=== PATIENT | male | born 1990 | race Caucasian/White ===

== ENCOUNTER 2017-06-30 11:18 | Inpatient (IN) | payer SELFPAY ==
[~2017-06-30] VITALS: Ht 180.3 cm; Wt 63.6 kg
[~2017-06-30 11:18] MED LIST: ACET-749 PO; OXYC1TAB3 PO; [UNRECOGNIZED DRUG - CODE]
[2017-06-30] MEDS ORDERED: FENTANYL CITRATE INJ 50 MCG/1 ML 2 ML VIAL IV STA (11:35)
[2017-06-30] MEDS ORDERED: KETOROLAC TROMETHAMINE 30 MG/ML VIAL IV STA ×2 (11:35)
[2017-06-30] MEDS ORDERED: ONDANSETRON INJ 2 MG/ML 2 ML VIAL IV STA (11:35)
[2017-06-30] MEDS ORDERED: SODIUM CHLORIDE 0.9% 1000ML 1,000 ML IV STA (11:35)
[2017-06-30 12:16] LABS: BASO % 0.2 %; BASO ABS # 0.02 K/uL (0-0.2); EOS % 0.1 %; EOS ABS # 0.01 K/uL (0-0.5); HEMATOCRIT 38.8 % (42-52); HEMOGLOBIN 13.2 g/dL (14.0-18.0); IG# 0.02 K/uL (0.00-0.02); LYMPH % 16.2 %; MEAN CELL VOLUME 90.9 fL (80-100); MEAN CORPUSCULAR HEMOGLOBIN 30.9 pg (25-34); MEAN PLATELET VOLUME 10.6 fL (7.4-10.4); MONO % 7.6 %; MONO ABS # 0.61 K/uL (0.11-0.59); NEUT % 75.7 %; NEUT ABS # 6.07 K/uL (1.4-6.5); PLATELET COUNT 181 K/uL (130-400); RED CELL DISTRIBUTION WIDTH CV 13.7 % (11.5-14.5); RED CELL DISTRIBUTION WIDTH SD 45.3 fL (36.4-46.3); WHITE BLOOD COUNT 8.03 K/uL (4.8-10.8)
--- NOTE | 2017-06-30 12:27 | DIAGNOSTIC IMAGING REPORT ---
CT OF THE ABDOMEN AND PELVIS WITHOUT CONTRAST, STONE PROTOCOL CLINICAL HISTORY: Right flank pain. COMPARISON STUDY: CT of the abdomen and pelvis June 13, 2010 TECHNIQUE: Helical axial images of the abdomen and pelvis were obtained without IV or oral contrast according to renal stone protocol. A dose lowering technique was utilized adhering to the principles of ALARA. FINDINGS: A 5 mm x 4 mm proximal right ureteral calculus results in moderate right hydronephrosis. There is perinephric infiltration. Multiple bilateral renal calculi are noted which measure up to 4 mm. There are no additional ureteral. Evaluation of the abdomen and pelvis is suboptimal given the lack of IV contrast. Unenhanced images of the liver, spleen, adrenal glands and pancreas are normal. There is no evidence for a bowel obstruction. No lymphadenopathy is present. No suspicious osseous lesion is present. The appendix is normal. IMPRESSION: 1. 5 mm x 4 mm proximal right ureteral calculus which results in moderate right hydronephrosis. 2. Bilateral nephrolithiasis. Electronically signed by: John Richey M.D. 06/30/2017 12:26 PM Dictated Date/Time: 06/30/2017 12:21 PM
[2017-06-30 12:28] LABS: ALBUMIN 3.6 gm/dl (3.4-5.0); CALCIUM 7.7 mg/dl (8.5-10.1); CREATININE 1.04 mg/dl (0.60-1.40); POTASSIUM 3.9 mmol/L (3.5-5.1)
[2017-06-30 12:31] LABS: TOTAL PROTEIN 6.5 gm/dl (6.4-8.2)
[2017-06-30] MEDS: MoRPHine SULFATE 4 MG/ML 1 ML CARP\\VIAL IV PRN ×3 (12:37→15:42)
[2017-06-30] MEDS ORDERED: HYDROmorphone INJ 2 MG/ML SYR/VIAL IV STA (13:32)
--- NOTE | 2017-06-30 13:46 | EMERGENCY ROOM VISIT NOTE ---
History Report prepared by Kenny: Gemini Roberts Under the Supervision of: Dr. Salomón Dubois D.O. First contact with patient: 11:31 Chief Complaint: FLANK PAIN Stated Complaint: FLANK PAIN History of Present Illness The patient is a 27 year old male who presents to the Emergency Room with complaints of persistent right sided flank pain that began earlier today. He reports that yesterday he was experiencing sharp abdominal pain and diarrhea. Today when he woke up, he was experiencing severe right sided flank pain. He denies any urinary symptoms, but does not he has not been urinating much. Source of History: patient Onset: today Position: other (right flank) Quality: other (right flank pain) Timing: other (persistent) Associated Symptoms: + abdominal pain (sharp), + diarrhea, No urinary symptoms Review of Systems See HPI for pertinent positives & negatives. A total of 10 systems reviewed and were otherwise negative. Past Medical & Surgical Medical Problems: (1) Urinary problem in male Patient denies any history of medical problems. Family History Cancer Diabetes mellitus Gallbladder disease Kidney disease Social History Smoking Status: Former Smoker Smokeless Tobacco Use: Unknown Alcohol Use: none Drug Use: none Marital Status: single Housing Status: lives with family Current/Historical Medications No Active Prescriptions or Reported Meds Allergies Coded Allergies: No Known Allergies (Unverified , 06/13/10) Physical Exam Vital Signs Date Time Temp Pulse Resp B/P (MAP) Pulse Ox O2 Delivery O2 Flow Rate FiO2 06/30/17 13:07 58 20 130/72 100 Nasal Cannula 3.0 06/30/17 12:55 47 16 142/75 100 Nasal Cannula 3.0 06/30/17 12:29 42 15 125/70 100 Room Air 06/30/17 11:21 36.7 54 20 125/95 95 Room Air Physical Exam CONSTITUTIONAL/VITAL SIGNS: Reviewed / noted above. GENERAL: Non-toxic in appearance. INTEGUMENTARY: Warm, dry, and [place]. HEAD: Normocephalic. EYES: without scleral icterus or trauma. ENT/OROPHARYNX: clear and moist. LYMPHADENOPATHY/NECK: Is supple without lymphadenopathy or meningismus. RESPIRATORY: Lungs clear and equal. CARDIOVASCULAR: Regular rate and rhythm. GI/ABDOMEN: Soft and nontender. No organomegaly or pulsatile mass. No rebound or guarding. Normal bowel sounds. EXTREMITIES: Warm and well perfused. BACK: Right CVA tenderness. NEUROLOGICAL: Intact without focal deficits. PSYCHIATRIC: normal affect. MUSCULOSKELETAL: Normally developed with good muscle tone. Medical Decision & Procedures ER Provider Diagnostic Interpretation: Radiology results as stated below per my review and radiologist interpretation: CT OF THE ABDOMEN AND PELVIS WITHOUT CONTRAST, STONE PROTOCOL CLINICAL HISTORY: Right flank pain. COMPARISON STUDY: CT of the abdomen and pelvis June 13, 2010 TECHNIQUE: Helical axial images of the abdomen and pelvis were obtained without IV or oral contrast according to renal stone protocol. A dose lowering technique was utilized adhering to the principles of ALARA. FINDINGS: A 5 mm x 4 mm proximal right ureteral calculus results in moderate right hydronephrosis. There is perinephric infiltration. Multiple bilateral renal calculi are noted which measure up to 4 mm. There are no additional ureteral. Evaluation of the abdomen and pelvis is suboptimal given the lack of IV contrast. Unenhanced images of the liver, spleen, adrenal glands and pancreas are normal. There is no evidence for a bowel obstruction. No lymphadenopathy is present. No suspicious osseous lesion is present. The appendix is normal. IMPRESSION: 1. 5 mm x 4 mm proximal right ureteral calculus which results in moderate right hydronephrosis. 2. Bilateral nephrolithiasis. Electronically signed by: John Richey M.D. 06/30/2017 12:26 PM Dictated Date/Time: 06/30/2017 12:21 PM Laboratory Results 06/30/17 12:00 Red Blood Count 4.27, Mean Corpuscular Volume 90.9, Mean Corpuscular Hemoglobin 30.9, Mean Corpuscular Hemoglobin Concent 34.0, Mean Platelet Volume 10.6, Neutrophils (%) (Auto) 75.7, Lymphocytes (%) (Auto) 16.2, Monocytes (%) (Auto) 7.6, Eosinophils (%) (Auto) 0.1, Basophils (%) (Auto) 0.2, Neutrophils # (Auto) 6.07, Lymphocytes # (Auto) 1.30, Monocytes # (Auto) 0.61, Eosinophils # (Auto) 0.01, Basophils # (Auto) 0.02 06/30/17 12:00 Test 06/30/17 11:30 06/30/17 12:00 Urine Color ORANGE Urine Appearance TURBID (CLEAR) Urine pH 5.5 (4.5-7.5) Urine Specific [place] 1.024 (1.000-1.030) Urine Protein 1+ (NEG) Urine Glucose (UA) NEG (NEG) Urine Ketones NEG (NEG) Urine Occult Blood 3+ (NEG) Urine Nitrite NEG (NEG) Urine Bilirubin NEG (NEG) Urine Urobilinogen NEG (NEG) Urine Leukocyte Esterase SMALL (NEG) Urine WBC (Auto) 5-10 /hpf (0-5) Urine RBC (Auto) >30 /hpf (0-4) Urine Hyaline Casts (Auto) 1-5 /lpf (0-5) Urine Epithelial Cells (Auto) >30 /lpf (0-5) Urine Bacteria (Auto) NEG (NEG) Urine Renal Epithelial Cells /lpf (0-5) Urine Pathogenic Casts /lpf (0) Urine Mucus PRESENT (NONE PRSENT) White Blood Count 8.03 K/uL (4.8-10.8) Red Blood Count 4.27 M/uL (4.7-6.1) Hemoglobin 13.2 g/dL (14.0-18.0) Hematocrit 38.8 % (42-52) Mean Corpuscular Volume 90.9 fL (80-100) Mean Corpuscular Hemoglobin 30.9 pg (25-34) Mean Corpuscular Hemoglobin Concent 34.0 g/dl (32-36) Platelet Count 181 K/uL (130-400) Mean Platelet Volume 10.6 fL (7.4-10.4) Neutrophils (%) (Auto) 75.7 % Lymphocytes (%) (Auto) 16.2 % Monocytes (%) (Auto) 7.6 % Eosinophils (%) (Auto) 0.1 % Basophils (%) (Auto) 0.2 % Neutrophils # (Auto) 6.07 K/uL (1.4-6.5) Lymphocytes # (Auto) 1.30 K/uL (1.2-3.4) Monocytes # (Auto) 0.61 K/uL (0.11-0.59) Eosinophils # (Auto) 0.01 K/uL (0-0.5) Basophils # (Auto) 0.02 K/uL (0-0.2) RDW Standard Deviation 45.3 fL (36.4-46.3) RDW Coefficient of Variation 13.7 % (11.5-14.5) Immature Granulocyte % (Auto) 0.2 % Immature Granulocyte # (Auto) 0.02 K/uL (0.00-0.02) Anion Gap 5.0 mmol/L (3-11) Est Creatinine Clear Calc Drug Dose 96.0 ml/min Estimated GFR () 113.5 Estimated GFR (Non- 97.9 BUN/Creatinine Ratio 12.6 (10-20) Calcium Level 7.7 mg/dl (8.5-10.1) Total Bilirubin 0.8 mg/dl (0.2-1) Direct Bilirubin 0.1 mg/dl (0-0.2) Aspartate Amino Transf (AST/SGOT) 24 U/L (15-37) Alanine Aminotransferase (ALT/SGPT) 35 U/L (12-78) Alkaline Phosphatase 62 U/L (45-117) Total Protein 6.5 gm/dl (6.4-8.2) Albumin 3.6 gm/dl (3.4-5.0) Lipase 92 U/L (73-393) Laboratory results as stated above per my review. Medications Administered Medications (Trade) Dose Ordered Sig/Toni Route Start Time Stop Time Status Last Admin Dose Admin Sodium Chloride 1,000 ml @ 999 mls/hr Q1H1M STAT IV 06/30/17 11:35 06/30/17 12:35 DC 06/30/17 11:47 999 MLS/HR Fentanyl Citrate (Fentanyl Inj) 100 mcg NOW STAT IV 06/30/17 11:35 06/30/17 11:36 DC 06/30/17 11:45 100 MCG Ondansetron HCl (Zofran Inj) 4 mg NOW STAT IV 06/30/17 11:35 06/30/17 11:37 DC 06/30/17 11:45 4 MG Ketorolac Tromethamine (Toradol Inj) 30 mg NOW STAT IV 06/30/17 11:35 06/30/17 11:37 DC 06/30/17 11:49 30 MG Morphine Sulfate (MoRPHine SULFATE INJ) 4 mg Q15M PRN IV 06/30/17 11:45 07/14/17 11:44 06/30/17 13:06 4 MG Hydromorphone HCl (Dilaudid Inj) 2 mg NOW STAT IV 06/30/17 13:32 06/30/17 13:33 DC 4/27/18 13:39 2 MG ED Course 1134: Previous medical records were reviewed. The patient was evaluated in room B7. A complete history and physical examination was performed. 1135: Ordered Toradol Inj 30mg IV, Zofran Inj 4mg IV, Fentanyl Inj 100mcg IV, and Sodium Chloride 1000 ml @ 999 mls/hr IV. 1145: Ordered Morphine Sulfate 4mg IV. 1314: I reevaluated the patient, who was resting. Updated him on test findings. He verbalized complete understanding. 1332: Ordered Dilaudid Inj 2mg IV. 1335: Discussed the patient's case with Bety Gregg [facility], who suggests we control his pain here to avoid admitting him since he does not have health insurance. 1421: Discussed the patient's case with Hayley Contreras PA-C. The patient will be evaluated for further treatment and disposition. 1435: I reevaluated the patient discussed the treatment plan. He verbalized complete agreement. Medical Decision Differential considered: pancreatitis, hepatitis, or acute cholecystitis, AAA, UTI, pyelonephritis, kidney stones, appendicitis, diverticulitis, shingles, bowel obstruction mesenteric ischemia, intussusception,hernia, testicular torsion. This is a 27-year-old male who presents to the ED with a chief complaint of right flank pain. The patient states that his symptoms started yesterday evening. He also had some associated vomiting and diarrhea. The patient states that he awoke this morning with right flank pain. He has been in writhing pain most the day today. He is brought in by EMS. EMS provided IV fentanyl for pain. This did not seem to help much. He was given IV morphine as well as IV fluids and IV Toradol here. This also did not help his pain and he was given IV Dilaudid. The patient's exam reveals some right CVA tenderness. A CT scan reveals a 5 x 4 mm proximal right ureteral calculus with moderate right sided hydronephrosis. Urine revealed 3+ blood but no infection. CBC was normal and PRP was unremarkable. The patient was told the results of the test. Despite receiving moderate amount of medication for pain here, the patient continued having significant pain. I spoke with Bety Gregg from urology and they recommended admitting the patient for pain control. I spoke with the unassigned [facility] for unassigned. They will see the patient for further inpatient evaluation and management of pain. Medication Reconcilliation Current Medication List: was personally reviewed by me Blood Pressure Screening Patient's blood pressure: Normal blood pressure Blood pressure disposition: Did not require urgent referral Consults Time Called: 1335 Consulting Physician: HASMUKH [facility]ana [facility] Returned Call: 1335 Discussed the patient's case with HASMUKH Magana urology [facility], who suggests we control his pain here to avoid admitting him since he does not have health insurance. Additional Consults: Time Called: 1421 Consulted Physician: Hayley Contreras PA-C Returned Call: 1421 Additional Comments: Discussed the patient's case with Hayley Contreras PA-C. The patient will be evaluated for further treatment and disposition. Impression Primary Impression: Renal colic Additional Impression: Ureteral calculus, right Scribe Attestation The scribe's documentation has been prepared under my direction and personally reviewed by me in its entirety. I confirm that the note above accurately reflects all work, treatment, procedures, and medical decision making performed by me. Departure Information Dispostion Being Evaluated By Hospitalist Prescriptions No Active Prescriptions or Reported Meds Referrals No Doctor, Assigned (PCP) Forms HOME CARE DOCUMENTATION FORM, IMPORTANT VISIT INFORMATION Patient Instructions My [facility] Problem Qualifiers
[2017-06-30] MEDS ORDERED: POLYETHYLENE (MIRALAX) 17 GM PACK PO PRN (15:00)
[2017-06-30] MEDS ORDERED: ACETAMINOPHEN 325 MG TAB PO PRN (15:00)
[2017-06-30] MEDS ORDERED: TAMSULOSIN HCL 0.4 MG CAP PO ONE (15:15)
[2017-06-30 15:26] VITALS: Ht 180.3 cm; Wt 63.6 kg
[2017-06-30] MEDS ORDERED: SODIUM CHLORIDE 0.9% 1000ML 1,000 ML IV SCH (15:30)
[2017-06-30] MEDS: ONDANSETRON INJ 2 MG/ML 2 ML VIAL IV PRN ×2 (15:45→22:23)
--- NOTE | 2017-06-30 15:51 | History and Physical ---
History & Physical Date & Time of Service: Jun 30, 2017 at 15:15 Chief Complaint: Flank Pain Primary Care Physician: No Doctor, Assigned History of Present Illness Source: patient, family, clinic records, hospital records Pt is 27 y/o M with no chronic medical problems presented to ER with c/o R flank pain. Patient states this morning started with right back pain radiating to right flank with associated nausea vomiting 1. Pain described as sharp and is rated a 9 out of 10 on pain scale. States yesterday couple episodes of vomiting and couple episodes of diarrhea. Took Kaopectate with moderate relief. No diarrhea today. Patient states feels is urinated less today. Denies any hematuria, dysuria. Denies history of kidney stones in the past. Denies fever/chills, diaphoresis, hematemesis, hematochezia, melena, scrotal edema/erythema/pain/discoloration, AMEZCUA, dizziness, syncope, vision changes, neck pain, CP, SOB, orthopnea, palpitations, cough, sore throat, choking, otalgia, rhinorrhea, paresthesias, weakness, extremity edema, rashes, weight loss. Past Medical/Surgical History Medical Problems: (1) Urinary problem in male Status: Resolved Surgical Problems: (1) Hx of colonoscopy Permanent Comment: Internal hemorrhoids Status: Resolved (2) Hx of removal of testicle Permanent Comment: Left - age [age] Status: Resolved (3) Hx of undescended testicle Permanent Comment: left side. Surgical removal age 1 Status: Chronic Family History Cancer Diabetes mellitus Gallbladder disease Kidney disease Social History Smoking Status: Former Smoker Smokeless Tobacco Use: Yes (0.5-1 can a day) Alcohol Use: occasionally Drug Use: none Marital Status: single Allergies Coded Allergies: No Known Allergies (Unverified , 06/13/10) Home Medications No Active Prescriptions or Reported Meds Review of Systems Constitutional: No fever, No chills, No sweats, No weight loss, No weakness, No fatigue Eyes: No eye pain, No redness ENT: No hearing loss, No unusual epistaxis, No nasal symptoms Respiratory: No cough, No sputum, No wheezing, No shortness of breath Cardiovascular: No chest pain, No edema, No palpitations Abdomen: + problem reported (see HPI) Musculoskeletal: No joint pain, No muscle pain Genitourinary - Male: No hematuria, No dysuria, No urinary frequency, No urinary urgency, No urinary retention, No penile discharge Hematologic / Lymphatic: No abnormal bleeding/bruising, No clotting problems Integumentary: No rash, No itch Physical Exam Vital Signs Date Time Temp Pulse Resp B/P (MAP) Pulse Ox O2 Delivery O2 Flow Rate FiO2 06/30/17 15:08 61 18 138/59 99 Nasal Cannula 3.0 06/30/17 13:07 58 20 130/72 100 Nasal Cannula 3.0 06/30/17 12:55 47 16 142/75 100 Nasal Cannula 3.0 06/30/17 12:29 42 15 125/70 100 Room Air 06/30/17 11:21 36.7 54 20 125/95 95 Room Air General Appearance: no apparent distress (at this time resting supine in bed), + thin Head: normocephalic, atraumatic Eyes: normal inspection, sclerae normal ENT: hearing grossly normal, pharynx normal, + pertinent finding (mucous membranes moist) Neck: supple, trachea midline Respiratory/Chest: lungs clear, normal breath sounds, no respiratory distress Cardiovascular: regular rate, rhythm, no murmur, normal peripheral pulses Abdomen/GI: normal bowel sounds, soft, + pertinent finding (+right CVA and flank tenderness to palpation, no other abdominal tenderness to palpation. no rebound or guarding) Back: normal inspection, normal range of motion (ROM with pain reproduced to right flank) Extremities/Musculoskelatal: normal inspection, normal capillary refill, no pedal edema, non-tender Neurologic/Psych: alert, normal mood/affect, oriented x 3 Skin: normal color, warm/dry Diagnostics Laboratory Results Results Past 24 Hours Test 06/30/17 11:30 06/30/17 12:00 Range/Units Urine Color ORANGE Urine Appearance TURBID CLEAR Urine pH 5.5 4.5-7.5 Urine Specific [place] 1.024 1.000-1.030 Urine Protein 1+ NEG Urine Glucose (UA) NEG NEG Urine Ketones NEG NEG Urine Occult Blood 3+ NEG Urine Nitrite NEG NEG Urine Bilirubin NEG NEG Urine Urobilinogen NEG NEG Urine Leukocyte Esterase SMALL NEG Urine WBC (Auto) 5-10 0-5 /hpf Urine RBC (Auto) >30 0-4 /hpf Urine Hyaline Casts (Auto) 1-5 0-5 /lpf Urine Epithelial Cells (Auto) >30 0-5 /lpf Urine Bacteria (Auto) NEG NEG Urine Renal Epithelial Cells 0-5 /lpf Urine Pathogenic Casts 0 /lpf Urine Mucus PRESENT NONE PRSENT White Blood Count 8.03 4.8-10.8 K/uL Red Blood Count 4.27 4.7-6.1 M/uL Hemoglobin 13.2 14.0-18.0 g/dL Hematocrit 38.8 42-52 % Mean Corpuscular Volume 90.9 80-100 fL Mean Corpuscular Hemoglobin 30.9 25-34 pg Mean Corpuscular Hemoglobin Concent 34.0 32-36 g/dl Platelet Count 181 130-400 K/uL Mean Platelet Volume 10.6 7.4-10.4 fL Neutrophils (%) (Auto) 75.7 % Lymphocytes (%) (Auto) 16.2 % Monocytes (%) (Auto) 7.6 % Eosinophils (%) (Auto) 0.1 % Basophils (%) (Auto) 0.2 % Neutrophils # (Auto) 6.07 1.4-6.5 K/uL Lymphocytes # (Auto) 1.30 1.2-3.4 K/uL Monocytes # (Auto) 0.61 0.11-0.59 K/uL Eosinophils # (Auto) 0.01 0-0.5 K/uL Basophils # (Auto) 0.02 0-0.2 K/uL RDW Standard Deviation 45.3 36.4-46.3 fL RDW Coefficient of Variation 13.7 11.5-14.5 % Immature Granulocyte % (Auto) 0.2 % Immature Granulocyte # (Auto) 0.02 0.00-0.02 K/uL Sodium Level 142 136-145 mmol/L Potassium Level 3.9 3.5-5.1 mmol/L Chloride Level 112 98-107 mmol/L Carbon Dioxide Level 25 21-32 mmol/L Anion Gap 5.0 3-11 mmol/L Blood Urea Nitrogen 13 7-18 mg/dl Creatinine 1.04 0.60-1.40 mg/dl Est Creatinine Clear Calc Drug Dose 96.0 ml/min Estimated GFR () 113.5 Estimated GFR (Non- 97.9 BUN/Creatinine Ratio 12.6 10-20 Random Glucose 101 70-99 mg/dl Calcium Level 7.7 8.5-10.1 mg/dl Total Bilirubin 0.8 0.2-1 mg/dl Direct Bilirubin 0.1 0-0.2 mg/dl Aspartate Amino Transf (AST/SGOT) 24 15-37 U/L Alanine Aminotransferase (ALT/SGPT) 35 12-78 U/L Alkaline Phosphatase 62 45-117 U/L Total Protein 6.5 6.4-8.2 gm/dl Albumin 3.6 3.4-5.0 gm/dl Lipase 92 73-393 U/L Diagnostic Radiology CT abd/pelvis: IMPRESSION: 1. 5 mm x 4 mm proximal right ureteral calculus which results in moderate right hydronephrosis. 2. Bilateral nephrolithiasis. Impression Assessment and Plan RENAL COLIC/STONE/MODERATE RIGHT HYDRONEPHROSIS Patient received fentanyl in route by EMS, and ER received Toradol 30 mg IV, fentanyl 100 mcg IV, morphine, Dilaudid 2 mg IV, 1 L NSS, Zofran 4 mg. Patient with recurrent pain and admitted for pain control. CT abd/pelvis: 5 mm x 4 mm proximal right ureteral calculus with moderate right hydronephrosis. U/A:3+blood , >30 RBC, 5-10 WBC, >30 epi. No leukocytosis, afebrile. -admit for pain control -IVF -Toradol prn pain -Dilaudid prn severe pain -Flomax daily -Urology consult -cbc, prp in am DVT Prophylaxis -Ambulation, pt young without medical hx. Will hold on medical VTE Disposition admit medsur Full code Pt does not have PCP Pt was seen with Dr Walter. See addendum Attending Addendum Pt was seen and examined. Agreed with Leslie ABRAHAM exam, assessment and plan. 27 y/o M with no significant PMH presented to ER with c/o R flank pain. Pt described the pain as sharp, severe, about 10/10 associated with nausea and vomiting. CT abdomen/pelvis done in the ER showed 5 mm x 4 mm proximal right ureteral calculus which results in moderate right hydronephrosis. Pt said that the pain med does not last too long. Pt is barely able to keep his eyes open. In the ER his oxygen saturation dropped and was placed on NC. Denies any chest pain, palpitation and SOB. General- drowsy and lethargy Head- atraumatic Eyes- PERRL, EOMI ENT- oropharynx clear Neck- supple, no JVD Lungs- No wheezing Heart- Bradycardia Abdomen- normal bowel sounds, soft A/P Right ureteral Calculus Moderate right Hydronephrosis CT abdomen/pelvis showed 5 mm x 4 mm proximal right ureteral calculus Continue pain control NS at 150ml Urology on board NPO after midnight in case pt will need surgical procedure if pain worsening or if becomes febrile. Check BMP in am Hypoxia Mostly related to narcotic Continue oxygen supplement Please hold narcotic if pt becomes drowsy and lethargy. Please refer to Leslie ABRAHAM documentation for other problems. MD [place] Resuscitation Status VTE Prophylaxis Will order VTE Prophylaxis: No Reason for no VTE drug order: Treatment not indicated Reason no Mechanical VTE Order: Treatment not indicated
[2017-06-30 16:00] VITALS: O2SAT 96
--- NOTE | 2017-06-30 16:34 | Urology Consultation ---
History General Date of Service: Jun 30, 2017. Primary Care Physician: No Doctor, Assigned Pt seen a urologist before?: No History of Present Illness Sudden onset of severe right sided pain in waves in flank to groin severe without position of comfort. Poorly tolerated. Not completely controlled in ER with IV and PO medication. Admitted for Colic. Patient still experiencing waves of intermittent severe pain. Worst pain patient experienced. Also with nausea and abd discomfort. Imaging Imaging: CT Laboratory Labs were reviewed and are within normal limits unless listed below. Labs are available in the chart and at [facility] Problem List Medical Problems: (1) Renal colic Status: Acute (2) Ureteral calculus, right Status: Acute Surgical Problems: (1) Hx of undescended testicle Permanent Comment: left side. Surgical removal age 1 Status: Chronic Past History no pertinent history Past Surgical History: no surgical history Family History Cancer Diabetes mellitus Gallbladder disease Kidney disease Social History Hx Tobacco Use In Past Year?: No Marital status: single Allergies Coded Allergies: No Known Allergies (Unverified , 06/13/10) Medications Home Medications: Home Meds and Scripts Medications Dose Route/Sig Max Daily Dose Days Date Category No Active Prescriptions or Reported Medications Rx Inpatient Medications: Current Inpatient Medications Medications (Trade) Dose Ordered Sig/Toni Route Start Time Stop Time Status Last Admin Dose Admin Morphine Sulfate (MoRPHine SULFATE INJ) 4 mg Q15M PRN IV 06/30/17 11:45 07/14/17 11:44 06/30/17 15:42 4 MG Acetaminophen (Tylenol Tab) 650 mg Q4H PRN PO 06/30/17 15:00 07/30/17 14:59 Polyethylene (Miralax Powder Packet) 17 gm DAILY PRN PO 06/30/17 15:00 07/30/17 14:59 Ondansetron HCl (Zofran Inj) 4 mg Q6H PRN IV 06/30/17 15:00 07/30/17 14:59 06/30/17 15:45 4 MG Ketorolac Tromethamine (Toradol Inj) 30 mg Q6H PRN IV 06/30/17 15:15 07/05/17 15:14 Hydromorphone HCl (Dilaudid Inj) 1 mg Q4HWA PRN IV 06/30/17 15:15 07/14/17 15:14 Sodium Chloride 1,000 ml @ 100 mls/hr Q10H IV 06/30/17 15:30 07/01/17 11:29 06/30/17 15:43 100 MLS/HR Tamsulosin HCl (Flomax Cap) 0.4 mg QAM PO 07/01/17 09:00 07/31/17 08:59 Review of Systems Review of Systems All Other Systems: Reviewed and Negative Additional Comments: All reviewed. Pertinent values in HPI. Physical Exam Vital Signs: Vital Signs Past 12 Hours Date Time Temp Pulse Resp B/P (MAP) Pulse Ox O2 Delivery O2 Flow Rate FiO2 06/30/17 15:44 58 16 118/61 99 Nasal Cannula 3.0 06/30/17 15:26 Room Air 06/30/17 15:08 61 18 138/59 99 Nasal Cannula 3.0 06/30/17 13:07 58 20 130/72 100 Nasal Cannula 3.0 06/30/17 12:55 47 16 142/75 100 Nasal Cannula 3.0 06/30/17 12:29 42 15 125/70 100 Room Air 06/30/17 11:21 36.7 54 20 125/95 95 Room Air Physical Exam: General Appearance: WD/WN, no apparent distress Eyes: bilateral eyes normal inspection ENT: normal ENT inspection, hearing grossly normal Neck: no JVD Respiratory/Chest: no respiratory distress, no accessory muscle use Cardiovascular: regular rate, rhythm Gastrointestinal: Abdomen: normal abdomen Bladder: normal bladder Renal: cva tenderness Extremities: normal range of motion, non-tender, normal inspection, no pedal edema, no calf tenderness Neurologic/Psychiatric: mobile application architect II-XII nml as tested, no motor/sensory deficits, alert, normal mood/affect, oriented x 3 Skin: normal color, warm/dry, no rash Lymphatic: no adenopathy Assessment & Plan Assessment & Plan Imaging: CT 1. Right Ureteral Stone 2. Renal Colic 3. Nausea. Patient admitted for pain control. Recommend PRN medication with IV and PO medications. Will monitor and assess. Discussed stone passage and possible outcomes. 5mm stone with high likelyhood of spontaneous passage. Will need to get patient's pain tolerable. Will monitor closely. Will follow and see if improves. If continued Colic with multiple medications may need stent. Stent discussed with patient. Discussed risks and benefits. Continue observation. If unable to pass or stone pain intolerable will plan for stent. Will likely give overnight to see if able to control pain, unless acute changes such as Fever or other signs of sepsis. Continue hydration, antibiotics, narcotics, toradol, and flomax. May try ditropan if others not working. Will monitor.
[2017-06-30] MEDS: HYDROmorphone INJ 2 MG/ML SYR/VIAL IV PRN ×2 (16:38→20:12)
[2017-06-30] MEDS: KETOROLAC TROMETHAMINE 30 MG/ML VIAL IV PRN ×2 (16:39→22:23)
[2017-06-30] MEDS: SODIUM CHLORIDE 0.9% 1000ML 1,000 ML IV SCH ×2 (17:47→23:09)
[2017-06-30 20:00] VITALS: O2SAT 96
[2017-07-01] VITALS (11 sets, daily range): BP systolic 104–147; BP diastolic 61–75; PULSE 46–74; TEMP 36.3–36.9; O2SAT 95–100
[2017-07-01] MEDS: HYDROmorphone INJ 2 MG/ML SYR/VIAL IV PRN ×5 (00:35→22:05)
[2017-07-01] MEDS: ONDANSETRON INJ 2 MG/ML 2 ML VIAL IV PRN ×3 (03:59→15:59)
[2017-07-01] MEDS: KETOROLAC TROMETHAMINE 30 MG/ML VIAL IV PRN ×3 (04:00→15:56)
[2017-07-01] MEDS: SODIUM CHLORIDE 0.9% 1000ML 1,000 ML IV SCH ×2 (05:48→09:08)
[2017-07-01 07:42] LABS: HEMATOCRIT 37.7 % (42-52); HEMOGLOBIN 12.5 g/dL (14.0-18.0); MEAN CELL VOLUME 92.6 fL (80-100); MEAN CORPUSCULAR HEMOGLOBIN 30.7 pg (25-34); MEAN CORPUSCULAR HGB CONC 33.2 g/dl (32-36); MEAN PLATELET VOLUME 10.5 fL (7.4-10.4); PLATELET COUNT 147 K/uL (130-400); RED CELL DISTRIBUTION WIDTH CV 13.9 % (11.5-14.5); RED CELL DISTRIBUTION WIDTH SD 47.2 fL (36.4-46.3); WHITE BLOOD COUNT 7.03 K/uL (4.8-10.8)
[2017-07-01 08:23] LABS: CALCIUM 8.1 mg/dl (8.5-10.1); CREATININE 1.31 mg/dl (0.60-1.40); POTASSIUM 4.1 mmol/L (3.5-5.1)
[2017-07-01] MEDS: TAMSULOSIN HCL 0.4 MG CAP PO SCH (09:38)
--- NOTE | 2017-07-01 12:00 | DIAGNOSTIC IMAGING REPORT ---
KUB CLINICAL HISTORY: Stone nephrocalcinosis COMPARISON STUDY: CT 06/30/2017 FINDINGS: The soft tissues, psoas shadows, renal outlines and intestinal gas pattern appear normal. There is no evidence for bowel obstruction. Cortical calcification peripheral aspect right kidney. Renal and psoas shows otherwise are obscured by overlying bowel content. Study is considered nondiagnostic in reference to comparison to the prior CT study. IMPRESSION: Extensive bowel content obscuring the kidneys and psoas shadows. This study is considered nondiagnostic in reference to evaluation of the calculus of the right ureter previously described The above report was generated using voice recognition software. It may contain grammatical, syntax or spelling errors. Electronically signed by: Roddy Alcazar M.D. 07/01/2017 11:59 AM Dictated Date/Time: 07/01/2017 11:57 AM
--- NOTE | 2017-07-01 15:39 | DIAGNOSTIC IMAGING REPORT ---
(RENAL)RETROPERITON COMP HISTORY: Nephrocalcinosis. Obstruction. Stone COMPARISON: None. FINDINGS: Right kidney: Maximum dimension 11.5 cm. Several calcifications are identified the largest of which measures 3 mm. Mild hydronephrosis. Normal corticomedullary differentiation and cortical thickness. Left kidney: Maximum dimension 11 cm. No evidence for hydronephrosis. Several calcifications measuring up to 3 mm. Normal corticomedullary differentiation and cortical thickness. Bladder: No bladder wall thickening. The bilateral ureteral jets were identified. IMPRESSION: 1. Mild right renal hydronephrosis. Graft 2. Several renal cortical calcifications bilaterally measuring up to 3 mm. The above report was generated using voice recognition software. It may contain grammatical, syntax or spelling errors. Electronically signed by: Roddy Alcazar M.D. 07/01/2017 3:38 PM Dictated Date/Time: 07/01/2017 3:36 PM
[2017-07-01] MEDS: D5W AND LACTATED RINGERS 1,000 ML IV SCH ×3 (15:51→21:06)
[2017-07-01] MEDS: LORAZEPAM INJ 0.5 MG in SYRINGE 0.75 ML IV PRN (16:45)
--- NOTE | 2017-07-01 18:08 | Progress Note ---
Medicine Progress Note Date & Time of Visit: Jul 01, 2017 at ~ 12:30 . Subjective Persistent right flank pain, nausea, vomiting. No fever. No dysuria. . Objective Last 8 Hrs Date Time Temp Pulse Resp B/P (MAP) Pulse Ox O2 Delivery O2 Flow Rate FiO2 07/01/17 16:28 36.8 50 20 133/67 (89) 96 Room Air 07/01/17 16:00 96 Nasal Cannula 3.0 Physical Exam: General- appears to be uncomfortable Lungs- clear to auscultation; no respiratory distress Cardiovascular- RRR; no JVD; no pretibial edema Abdomen- quiet bowel sounds, soft, right-sided tenderness Back- right CVA tenderness Extremities- no cyanosis; no calf tenderness Neuro- alert, oriented Skin- warm & dry . Laboratory Results: Last 24 Hours Test 07/01/17 07:33 White Blood Count 7.03 K/uL Red Blood Count 4.07 M/uL Hemoglobin 12.5 g/dL Hematocrit 37.7 % Mean Corpuscular Volume 92.6 fL Mean Corpuscular Hemoglobin 30.7 pg Mean Corpuscular Hemoglobin Concent 33.2 g/dl RDW Standard Deviation 47.2 fL RDW Coefficient of Variation 13.9 % Platelet Count 147 K/uL Mean Platelet Volume 10.5 fL Sodium Level 143 mmol/L Potassium Level 4.1 mmol/L Chloride Level 113 mmol/L Carbon Dioxide Level 24 mmol/L Anion Gap 6.0 mmol/L Blood Urea Nitrogen 14 mg/dl Creatinine 1.31 mg/dl Est Creatinine Clear Calc Drug Dose 76.2 ml/min Estimated GFR () 85.9 Estimated GFR (Non- 74.1 BUN/Creatinine Ratio 10.9 Random Glucose 75 mg/dl Calcium Level 8.1 mg/dl Assessment & Plan URETERAL CALCULUS Presented to ED with right flank pain associated with nausea and vomiting. CT demonstrated a 5 mm calculus in the right proximal uterus with associated hydronephrosis. Urology consulted. Continue IV fluids, tamsulosin, analgesics, antiemetics. Further management per Urology. VTE PROPHYLAXIS Very low risk for VTE per IMPROVE risk assessment score. Ambulate. DISPOSITION Expected discharge to home. . Current Inpatient Medications: Current Inpatient Medications Medications (Trade) Dose Ordered Sig/Toni Route Start Time Stop Time Status Last Admin Dose Admin Acetaminophen (Tylenol Tab) 650 mg Q4H PRN PO 06/30/17 15:00 07/30/17 14:59 Polyethylene (Miralax Powder Packet) 17 gm DAILY PRN PO 06/30/17 15:00 07/30/17 14:59 Ondansetron HCl (Zofran Inj) 4 mg Q6H PRN IV 06/30/17 15:00 07/30/17 14:59 07/01/17 15:59 4 MG Ketorolac Tromethamine (Toradol Inj) 30 mg Q6H PRN IV 06/30/17 15:15 07/05/17 15:14 07/01/17 15:56 30 MG Tamsulosin HCl (Flomax Cap) 0.4 mg QAM PO 07/01/17 09:00 07/31/17 08:59 07/01/17 09:38 0.4 MG Hydromorphone HCl (Dilaudid Inj) 1 mg Q2H PRN IV 07/01/17 12:45 07/14/17 15:14 07/01/17 14:10 1 MG Dextrose/Lactated Ringer's 1,000 ml @ 250 mls/hr Q4H IV 07/01/17 12:45 07/31/17 12:44 07/01/17 16:45 250 MLS/HR Lorazepam 0.5 mg/ Syringe 1 ml @ 0.5 mls/min Q6H PRN IV 07/01/17 12:45 07/31/17 12:44 07/01/17 16:45 0.5 MLS/MIN
[2017-07-01] MEDS ORDERED: PANTOprazole INJ 40 MG in SYRINGE 0 ML IV ONE (18:30)
--- NOTE | 2017-07-01 18:58 | Progress Note ---
Subjective Date of Service: Jul 01, 2017. Subjective Pt evaluation today including: conversation w/ patient, conversation w/ family , physical exam, chart review, lab review, review of studies Pain: Severe PO Intake: NPO Patient re-evaluated this afternoon. Continues to have significant pain even with heavy pain control. Now having significant N/v with antiemetics. Pain severe in flank radiating to groin in waves. Bothersome. Problem List Medical Problems: (1) Renal colic Status: Acute (2) Ureteral calculus, right Status: Acute Surgical Problems: (1) Hx of undescended testicle Permanent Comment: left side. Surgical removal age 1 Status: Chronic Review of Systems All Other Systems: Reviewed and Negative (All reviewed see HPI for results. ) Objective Vital Signs Date Time Temp Pulse Resp B/P (MAP) Pulse Ox O2 Delivery O2 Flow Rate FiO2 07/01/17 16:28 36.8 50 20 133/67 (89) 96 Room Air 07/01/17 16:00 96 Nasal Cannula 3.0 07/01/17 08:19 36.3 56 18 127/63 (84) 100 2.0 07/01/17 08:00 100 Nasal Cannula 3.0 07/01/17 00:11 36.5 58 20 104/61 (75) 100 Room Air 07/01/17 00:00 100 Nasal Cannula 3.0 06/30/17 20:00 96 Nasal Cannula 3.0 Physical Exam General Appearance: WD/WN, no apparent distress Eyes: normal inspection ENT: normal ENT inspection Neck: no JVD Respiratory/Chest: no respiratory distress, no accessory muscle use Cardiovascular: regular rate, rhythm Abdomen: + tenderness Extremities: normal range of motion, non-tender, normal inspection, no pedal edema, no calf tenderness Neurologic/Psychiatric: merchant police II-XII nml as tested, no motor/sensory deficits, alert, normal mood/affect, oriented x 3 Skin: normal color, warm/dry, no rash Lymphatic: no adenopathy Comments: Right CVA tenderness Laboratory Results Last 24 Hours Test 07/01/17 07:33 White Blood Count 7.03 K/uL Red Blood Count 4.07 M/uL Hemoglobin 12.5 g/dL Hematocrit 37.7 % Mean Corpuscular Volume 92.6 fL Mean Corpuscular Hemoglobin 30.7 pg Mean Corpuscular Hemoglobin Concent 33.2 g/dl RDW Standard Deviation 47.2 fL RDW Coefficient of Variation 13.9 % Platelet Count 147 K/uL Mean Platelet Volume 10.5 fL Sodium Level 143 mmol/L Potassium Level 4.1 mmol/L Chloride Level 113 mmol/L Carbon Dioxide Level 24 mmol/L Anion Gap 6.0 mmol/L Blood Urea Nitrogen 14 mg/dl Creatinine 1.31 mg/dl Est Creatinine Clear Calc Drug Dose 76.2 ml/min Estimated GFR () 85.9 Estimated GFR (Non- 74.1 BUN/Creatinine Ratio 10.9 Random Glucose 75 mg/dl Calcium Level 8.1 mg/dl Assessment and Plan 1. Obstructing Right Stone 2. N/v 3. Renal Colic Plan to take patient to OR. Still having severe pain and now significant nausea and vomiting even with medication. Risks and benefits discussed at [facility]. Plan cystoscopy, right retrograde pyelogram and stent.
[2017-07-01] MEDS ORDERED: ONDANSETRON INJ 2 MG/ML 2 ML VIAL ONE (18:59)
[2017-07-01] MEDS ORDERED: MIDAZOLAM HCL 1 MG/ML 2ML VIAL ONE (19:00)
[2017-07-01] MEDS ORDERED: FENTANYL CITRATE INJ 50 MCG/1 ML 2 ML VIAL ONE (19:00)
[2017-07-01] MEDS ORDERED: Cysto-Conray II 17.2% 250ML BOTTLE ONE (19:07)
[2017-07-01] MEDS ORDERED: FENTANYL CITRATE INJ 50 MCG/1 ML 2 ML VIAL IV PRN (19:15)
[2017-07-01] MEDS ORDERED: EpHEDrine SULFATE INJ 50 MG/ML AMP IV PRN (19:15)
[2017-07-01] MEDS ORDERED: ATROPINE SULFATE 0.1 MG/ML 5ML SYR IV PRN (19:15)
[2017-07-01] MEDS ORDERED: ONDANSETRON INJ 2 MG/ML 2 ML VIAL IV PRN (19:15)
[2017-07-01] MEDS ORDERED: HYDROmorphone INJ 2 MG/ML SYR/VIAL IV PRN (19:30)
[2017-07-01] MEDS ORDERED: DEXAMETHASONE SOD INJ 4 MG/ML VIAL ONE (19:34)
[2017-07-01] MEDS ORDERED: SUCCINYLCHOLINE 100MG/5ML SYR IV ONE (19:34)
[2017-07-01] MEDS ORDERED: CEFAZOLIN SOD 1 GM VIAL ONE (19:37)
--- NOTE | 2017-07-01 19:37 | [facility] Operative Report ---
Operative Report Operative Date Jul 01, 2017. Pre-Operative Diagnosis Right Stone Post-Operative Diagnosis Same Procedure(s) Performed Cystoscopy, Right Stent, Right Retrograde pyelogram Surgeon Kaiden Estimated Blood Loss Minimal Findings Right Obst Stone Drains 6 Fr Multilength Right Ureteral Stent Anesthesia Type MAC Complication(s) none Disposition Recovery Room / PACU Indications Obstructing stone with intractable nausea and vomiting and pain. Risks and benefits discussed. Description of Procedure Patient was consented and brought back to the operating room. Patient was placed under anesthesia in the supine position and moved to the dorsal lithotomy position. Patient was prepped and draped in the regular sterile fashion. A time out was completed. A 30degree Cystoscope was placed into the bladder and the entire bladder was examined. The UO's were identified. The Right was cannulized with a catheter and a retrograde pyelogram was completed. A wire was then placed. With the wire in place, a 6 [place] Double J stent was placed. It was confirmed with fluoroscopy. With the stent in place, the bladder was emptied. The scope was removed. The patient was cleaned, aroused from anesthesia, and transferred to the pacu in stable condition having tolerated the procedure well with no complications. I was present and participated in all aspects of the procedure. The patient will be monitored in the PACU until transferred. I attest to the content of the Intraoperative Record and any orders documented therein. Any exceptions are noted below.
--- NOTE | 2017-07-01 19:45 | DIAGNOSTIC IMAGING REPORT ---
RETROGRADE INCLUDES KUB CLINICAL HISTORY: CYSTO, STENT PLACEMENT obstruction TECHNIQUE: Image intensifier COMPARISON STUDY: None FINDINGS: Image intensifier was used for placement of a right ureteral stent. Stent appears to be in good position. No evidence for hydronephrosis. IMPRESSION: Image intensifier utilized for right ureteral stent placement The above report was generated using voice recognition software. It may contain grammatical, syntax or spelling errors. Electronically signed by: Roddy Alcazar M.D. 07/01/2017 7:44 PM Dictated Date/Time: 07/01/2017 7:43 PM
--- NOTE | 2017-07-01 20:08 | Anesthesiology Progress Note ---
Anesthesia Post Op Note Date & Time Jul 01, 2017 at 20:08 Vital Signs Pain Intensity: 0 Vital Signs Past 12 Hours Date Time Temp Pulse Resp B/P (MAP) Pulse Ox O2 Delivery O2 Flow Rate FiO2 07/01/17 19:49 36.8 83 13 118/52 100 Oxymask 10 07/01/17 16:28 36.8 50 20 133/67 (89) 96 Room Air 07/01/17 16:00 96 Nasal Cannula 3.0 07/01/17 08:19 36.3 56 18 127/63 (84) 100 2.0 Notes Mental Status: alert / awake / arousable, participated in evaluation Pt Amnestic to Procedure: Yes Nausea / Vomiting: adequately controlled Pain: adequately controlled Airway Patency, RR, SpO2: stable & adequate BP & HR: stable & adequate Hydration State: stable & adequate Anesthetic Complications: no major complications apparent
[2017-07-02] MEDS: HYDROmorphone INJ 2 MG/ML SYR/VIAL IV PRN ×3 (01:08→13:02)
[2017-07-02 01:11] VITALS: O2SAT 96
[2017-07-02] MEDS: D5W AND LACTATED RINGERS 1,000 ML IV SCH ×5 (01:26→16:27)
[2017-07-02 03:32] VITALS: BP 111/61; PULSE 68; TEMP 37; O2SAT 97
[2017-07-02] MEDS: KETOROLAC TROMETHAMINE 30 MG/ML VIAL IV PRN ×2 (05:37→16:26)
[2017-07-02 07:30] VITALS: BP 110/62; PULSE 71; TEMP 36.9; O2SAT 98
[2017-07-02 07:32] LABS: CALCIUM 8.4 mg/dl (8.5-10.1); CREATININE 0.83 mg/dl (0.60-1.40); POTASSIUM 4.1 mmol/L (3.5-5.1)
[2017-07-02] MEDS: TAMSULOSIN HCL 0.4 MG CAP PO SCH (08:18)
[2017-07-02 11:40] VITALS: BP 121/69; PULSE 61; TEMP 36.8; O2SAT 98
[2017-07-02] MEDS: ONDANSETRON INJ 2 MG/ML 2 ML VIAL IV PRN (11:42)
[2017-07-02] MEDS: PANTOprazole INJ 40 MG in SYRINGE 0 ML IV SCH (11:42)
[2017-07-02 14:55] VITALS: BP 122/71; PULSE 55; TEMP 36.3; O2SAT 99
[2017-07-02] MEDS: LORAZEPAM INJ 0.5 MG in SYRINGE 0.75 ML IV PRN (17:15)
[2017-07-02 18:52] VITALS: BP 122/68; PULSE 61; TEMP 36.8; O2SAT 96
--- NOTE | 2017-07-02 21:13 | Progress Note ---
Medicine Progress Note Date & Time of Visit: Jul 02, 2017 at 10:00 . Subjective Right ureteral stent placed yesterday by Urology. Feels somewhat better today. No fever. Flank pain improved. Having some dysuria and hematuria. Still nauseated, but not as severe. . Objective Last 8 Hrs Date Time Temp Pulse Resp B/P (MAP) Pulse Ox O2 Delivery O2 Flow Rate FiO2 07/02/17 18:52 36.8 61 18 122/68 (86) 96 Room Air 07/02/17 16:00 Room Air 07/02/17 14:55 36.3 55 20 122/71 (88) 99 Physical Exam: General- no acute distress Lungs- clear to auscultation; no respiratory distress Cardiovascular- RRR; no JVD; no pretibial edema Abdomen- + bowel sounds, soft, less right-sided tenderness Extremities- no cyanosis; no calf tenderness Neuro- alert, oriented Skin- warm & dry . Laboratory Results: Last 24 Hours Test 07/02/17 06:32 Sodium Level 142 mmol/L Potassium Level 4.1 mmol/L Chloride Level 112 mmol/L Carbon Dioxide Level 25 mmol/L Anion Gap 5.0 mmol/L Blood Urea Nitrogen 8 mg/dl Creatinine 0.83 mg/dl Est Creatinine Clear Calc Drug Dose 120.3 ml/min Estimated GFR () 139.8 Estimated GFR (Non- 120.6 BUN/Creatinine Ratio 9.3 Random Glucose 179 mg/dl Calcium Level 8.4 mg/dl Assessment & Plan URETERAL CALCULUS Presented to ED with right flank pain associated with nausea and vomiting. CT demonstrated a 5 mm calculus in the right proximal uterus with associated hydronephrosis. Urology consulted. Received IV fluids, tamsulosin, analgesics, antiemetics. Right ureteral stent placement on 07/01/17. Further management per Urology. NAUSEA / VOMITING Secondary to ureteral calculus. Advance diet as tolerated. VTE PROPHYLAXIS Very low risk for VTE per IMPROVE risk assessment score. Ambulate. DISPOSITION Expected discharge to home. . Current Inpatient Medications: Current Inpatient Medications Medications (Trade) Dose Ordered Sig/Toni Route Start Time Stop Time Status Last Admin Dose Admin Acetaminophen (Tylenol Tab) 650 mg Q4H PRN PO 06/30/17 15:00 07/30/17 14:59 Polyethylene (Miralax Powder Packet) 17 gm DAILY PRN PO 06/30/17 15:00 07/30/17 14:59 Ondansetron HCl (Zofran Inj) 4 mg Q6H PRN IV 06/30/17 15:00 07/30/17 14:59 07/02/17 11:42 4 MG Ketorolac Tromethamine (Toradol Inj) 30 mg Q6H PRN IV 06/30/17 15:15 07/05/17 15:14 07/02/17 16:26 30 MG Tamsulosin HCl (Flomax Cap) 0.4 mg QAM PO 07/01/17 09:00 07/31/17 08:59 07/02/17 08:18 0.4 MG Hydromorphone HCl (Dilaudid Inj) 1 mg Q2H PRN IV 07/01/17 12:45 07/14/17 15:14 07/02/17 13:02 1 MG Dextrose/Lactated Ringer's 1,000 ml @ 100 mls/hr Q10H IV 07/01/17 12:45 07/31/17 12:44 07/02/17 16:27 100 MLS/HR Lorazepam 0.5 mg/ Syringe 1 ml @ 0.5 mls/min Q6H PRN IV 07/01/17 12:45 07/31/17 12:44 07/02/17 17:15 0.5 MLS/MIN Pantoprazole Sodium 40 mg/ Syringe 10 ml @ 5 mls/min DAILY@11 IV 07/02/17 11:00 08/01/17 10:59 07/02/17 11:42 5 MLS/MIN Ondansetron HCl (Zofran Inj) 4 mg ONE PRN IV 07/01/17 19:15 07/31/17 19:14
[2017-07-03] VITALS: BP 105/58; PULSE 46; TEMP 36.9; O2SAT 97
[2017-07-03] MEDS: D5W AND LACTATED RINGERS 1,000 ML IV SCH (04:06)
[2017-07-03 06:54] LABS: CALCIUM 7.7 mg/dl (8.5-10.1); CREATININE 0.85 mg/dl (0.60-1.40); POTASSIUM 3.5 mmol/L (3.5-5.1)
[2017-07-03 07:04] VITALS: BP 127/76; PULSE 50; TEMP 37; O2SAT 97
[2017-07-03] MEDS: TAMSULOSIN HCL 0.4 MG CAP PO SCH (08:08)
[2017-07-03] MEDS: PANTOprazole INJ 40 MG in SYRINGE 0 ML IV SCH (10:30)
--- NOTE | 2017-07-03 11:50 | Progress Note ---
Subjective Date of Service: Jul 03, 2017. Subjective Pt evaluation today including: conversation w/ patient, chart review, lab review Voiding: no voiding problems 27 yo male s/p right stent placement for right ureteral stone. Pt reports his pain and n/v have improved this morning. He continues to have some intermittent dysuria, hematuria, urgency, and frequency. Problem List Medical Problems: (1) Renal colic Status: Acute (2) Ureteral calculus, right Status: Acute Surgical Problems: (1) Hx of undescended testicle Permanent Comment: left side. Surgical removal age 1 Status: Chronic Review of Systems Constitutional: No fever, No chills Respiratory: No shortness of breath Cardiac: No chest pain Abdomen: No pain, No nausea, No vomiting Male : + dysuria, + urinary frequency, + hematuria Heme: No abnormal bleeding/bruising Objective Vital Signs Date Time Temp Pulse Resp B/P (MAP) Pulse Ox O2 Delivery O2 Flow Rate FiO2 07/03/17 08:00 Room Air 07/03/17 07:04 37.0 50 18 127/76 (93) 97 Room Air 07/03/17 00:00 36.9 46 18 105/58 (74) 97 Room Air 07/03/17 00:00 Room Air 07/02/17 20:00 Room Air 07/02/17 18:52 36.8 61 18 122/68 (86) 96 Room Air 07/02/17 16:00 Room Air 07/02/17 14:55 36.3 55 20 122/71 (88) 99 Physical Exam General Appearance: no apparent distress Eyes: normal inspection ENT: hearing grossly normal Neck: no JVD Respiratory/Chest: no respiratory distress, no accessory muscle use Cardiovascular: no JVD Extremities: normal inspection Neurologic/Psychiatric: alert, normal mood/affect, oriented x 3 Skin: normal color Laboratory Results Last 24 Hours Test 07/03/17 05:50 Sodium Level 146 mmol/L Potassium Level 3.5 mmol/L Chloride Level 112 mmol/L Carbon Dioxide Level 30 mmol/L Anion Gap 4.0 mmol/L Blood Urea Nitrogen 6 mg/dl Creatinine 0.85 mg/dl Est Creatinine Clear Calc Drug Dose 117.4 ml/min Estimated GFR () 138.4 Estimated GFR (Non- 119.4 BUN/Creatinine Ratio 7.0 Random Glucose 93 mg/dl Calcium Level 7.7 mg/dl Assessment and Plan POD #2 s/p cysto with right ureteral stent placement AFVSS. Pt clinically improved. OK for d/c home from perspective. Recommend d/c home on Pyridium, Flomax, 5 days of Cipro, Colace, and oral pain medication. Will plan to have the pt f/u in the next week with Dr. Richey to discuss ESWL vs URS. Will arrange Stone not visible on KUB from hospitalization. Will repeat prior to his f/u. Will sign off for now. Thanks for allowing us to participate in this pt's care. Discharge planning: home
--- NOTE | 2017-07-03 14:30 | Progress Note ---
Medicine Progress Note Date & Time of Visit: Jul 03, 2017 at 14:30 . Subjective Doing well. No fever. Nausea and vomiting resolved. Minimal flank discomfort. Dysuria and hematuria improved. . Objective Last 8 Hrs Date Time Temp Pulse Resp B/P (MAP) Pulse Ox O2 Delivery O2 Flow Rate FiO2 07/03/17 08:00 Room Air 07/03/17 07:04 37.0 50 18 127/76 (93) 97 Room Air Physical Exam: General- no acute distress Lungs- clear to auscultation; no respiratory distress Cardiovascular- RRR; no JVD; no pretibial edema Abdomen- + bowel sounds, soft, nontender Extremities- no cyanosis; no calf tenderness Neuro- alert, oriented Skin- warm & dry . Laboratory Results: Last 24 Hours Test 07/03/17 05:50 Sodium Level 146 mmol/L Potassium Level 3.5 mmol/L Chloride Level 112 mmol/L Carbon Dioxide Level 30 mmol/L Anion Gap 4.0 mmol/L Blood Urea Nitrogen 6 mg/dl Creatinine 0.85 mg/dl Est Creatinine Clear Calc Drug Dose 117.4 ml/min Estimated GFR () 138.4 Estimated GFR (Non- 119.4 BUN/Creatinine Ratio 7.0 Random Glucose 93 mg/dl Calcium Level 7.7 mg/dl Assessment & Plan URETERAL CALCULUS Presented to ED with right flank pain associated with nausea and vomiting. CT demonstrated a 5 mm calculus in the right proximal uterus with associated hydronephrosis. Urology consulted. Received IV fluids, tamsulosin, analgesics, antiemetics. Right ureteral stent placement on 07/01/17. Discharge on Cipro, Pyridium, Flomax. Further management per Urology. NAUSEA / VOMITING Secondary to ureteral calculus. Resolved. VTE PROPHYLAXIS Very low risk for VTE per IMPROVE risk assessment score. Ambulating. DISPOSITION Discharged to home. Follow-up with [facility] next week. . Discharge planning: home Current Inpatient Medications: Current Inpatient Medications Medications (Trade) Dose Ordered Sig/Toni Route Start Time Stop Time Status Last Admin Dose Admin Acetaminophen (Tylenol Tab) 650 mg Q4H PRN PO 06/30/17 15:00 07/30/17 14:59 Polyethylene (Miralax Powder Packet) 17 gm DAILY PRN PO 06/30/17 15:00 07/30/17 14:59 Ondansetron HCl (Zofran Inj) 4 mg Q6H PRN IV 06/30/17 15:00 07/30/17 14:59 07/02/17 11:42 4 MG Ketorolac Tromethamine (Toradol Inj) 30 mg Q6H PRN IV 06/30/17 15:15 07/05/17 15:14 07/02/17 16:26 30 MG Tamsulosin HCl (Flomax Cap) 0.4 mg QAM PO 07/01/17 09:00 07/31/17 08:59 07/03/17 08:08 0.4 MG Hydromorphone HCl (Dilaudid Inj) 1 mg Q2H PRN IV 07/01/17 12:45 07/14/17 15:14 07/02/17 13:02 1 MG Lorazepam 0.5 mg/ Syringe 1 ml @ 0.5 mls/min Q6H PRN IV 07/01/17 12:45 07/31/17 12:44 07/02/17 17:15 0.5 MLS/MIN Pantoprazole Sodium 40 mg/ Syringe 10 ml @ 5 mls/min DAILY@11 IV 07/02/17 11:00 08/01/17 10:59 07/03/17 10:30 5 MLS/MIN Ondansetron HCl (Zofran Inj) 4 mg ONE PRN IV 07/01/17 19:15 07/31/17 19:14
[2017-07-03] MEDS ORDERED: DOCU-94 PO (14:36)
[2017-07-03] MEDS ORDERED: FLM4 PO (14:36)
[2017-07-03] MEDS ORDERED: ACET-1138 PO (14:36)
[2017-07-03] MEDS ORDERED: CIPR-255 PO (14:36)
[2017-07-03] MEDS ORDERED: PHEN-876 PO (14:36)
--- NOTE | 2017-07-03 14:39 | Discharge Instructions ---
Discharge Instructions Date of Service Jul 03, 2017. Admission Reason for Admission: kidney stone . Discharge Discharge Diagnosis / Problem: kidney stone Discharge Goals Goal(s): Decrease discomfort, Improve disease control Activity Recommendations Activity Limitations: resume your previous activity . Instructions / Follow-Up Instructions / Follow-Up APPOINTMENTS: UROLOGY Dr. Richey [facility] [place] Office will contact you with appointment. Please call them if you have not heard from them by next week. OTHER INSTRUCTIONS: Drink plenty of fluids. Strain all urine and save any stones for Dr. Richey. Seek medical attention if you have: * temperature above 101 * chest pain or trouble breathing * abdominal pain, nausea, vomiting * diarrhea, dark stools or bloody stools * any unanswered questions or concerns Call 911 if symptoms are severe. Call if you have any questions or problems. My cell # is [phone]. You can also reach a [facility] hospitalist on duty at [facility] 24 hours a day by calling [phone]. Please take good care of yourself. Britton Santiago . Current Hospital Diet Patient's current hospital diet: Regular Diet Discharge Diet Recommended Diet: Regular Diet Procedures Procedures Performed: Right Ureteral Stent placement, cystoscopy Pending Studies Studies pending at discharge: no Medical Emergencies . Who to Call and When: Medical Emergencies: If at any time you feel your situation is an emergency, please call 911 immediately. . Non-Emergent Contact Non-Emergency issues call your: Primary Care Provider, Urologist . . "Provider Documentation" section prepared by Britton Santiago. .
[2017-07-03 14:56] VITALS: BP 127/76; PULSE 50; TEMP 37; O2SAT 97
--- NOTE | 2017-07-03 18:45 | Discharge Summary ---
Discharge Summary Date of Service Jul 03, 2017. Discharge Summary Admission Date: Jun 30, 2017 at 15:05 Discharge Date: Jul 03, 2017 Discharge Disposition: Home Principal Diagnosis: right ureteral calculus right hydronephrosis . Procedures: CT abdomen and pelvis US kidney IV meds IV fluids cystoscopy with ureteral stent placement 07/01/17 . Consultations: Urology with Dr. Richey . Medication Reconciliation New Medications: Acetaminophen (Tylenol Extra Strength) 500 Mg Tab 1000 MG PO Q8 PRN for Pain, #30 TAB No prescription necessary. Take 2 pills (1000 mg) every 8 hours as needed for pain. Ciprofloxacin Hcl (Cipro) 500 Mg Tab 500 MG PO BID, #10 TAB Docusate Sodium (Colace) 100 Mg Cap 100 MG PO BID, #30 CAP no prescription necessary Phenazopyridine HCl (Pyridium) 200 Mg Tab 200 MG PO TID PRN for Bladder pain, #12 TAB Tamsulosin HCl (Tamsulosin HCl) 0.4 Mg Cap 0.4 MG PO HS, #10 CAP Admission Information HPI (per Admitting provider): Pt is 27 y/o M with no chronic medical problems presented to ER with c/o R flank pain. Patient states this morning started with right back pain radiating to right flank with associated nausea vomiting 1. Pain described as sharp and is rated a 9 out of 10 on pain scale. States yesterday couple episodes of vomiting and couple episodes of diarrhea. Took Kaopectate with moderate relief. No diarrhea today. Patient states feels is urinated less today. Denies any hematuria, dysuria. Denies history of kidney stones in the past. Denies fever/chills, diaphoresis, hematemesis, hematochezia, melena, scrotal edema/erythema/pain/discoloration, AMEZCUA, dizziness, syncope, vision changes, neck pain, CP, SOB, orthopnea, palpitations, cough, sore throat, choking, otalgia, rhinorrhea, paresthesias, weakness, extremity edema, rashes, weight loss. . Physical Exam (per Admitting): General Appearance: no apparent distress (at this time resting supine in bed ), + thin Head: normocephalic, atraumatic Eyes: normal inspection, sclerae normal ENT: hearing grossly normal, pharynx normal, + pertinent finding (mucous membranes moist) Neck: supple, trachea midline Respiratory/Chest: lungs clear, normal breath sounds, no respiratory distress Cardiovascular: regular rate, rhythm, no murmur, normal peripheral pulses Abdomen/GI: normal bowel sounds, soft, + pertinent finding (+right CVA and flank tenderness to palpation, no other abdominal tenderness to palpation. no rebound or guarding) Back: normal inspection, normal range of motion (ROM with pain reproduced to right flank) Extremities/Musculoskelatal: normal inspection, normal capillary refill, no pedal edema, non-tender Neurologic/Psych: alert, normal mood/affect, oriented x 3 Skin: normal color, warm/dry Hospital Course URETERAL CALCULUS / RIGHT HYDRONEPHROSIS Presented to ED with right flank pain associated with nausea and vomiting. CT demonstrated a 5 mm calculus in the right proximal uterus with associated hydronephrosis. Urology consulted. Received IV fluids, tamsulosin, analgesics, antiemetics. Right ureteral stent placement on 07/01/17. Discharge on Cipro, Pyridium, Flomax. Further management per Urology. NAUSEA / VOMITING Secondary to ureteral calculus. Resolved. VTE PROPHYLAXIS Very low risk for VTE per IMPROVE risk assessment score. Ambulating. DISPOSITION Discharged to home. Follow-up with [facility] next week. . Discharge Instructions Date of Service Jul 03, 2017. Admission Reason for Admission: kidney stone . Discharge Discharge Diagnosis / Problem: kidney stone Discharge Goals Goal(s): Decrease discomfort, Improve disease control Activity Recommendations Activity Limitations: resume your previous activity . Instructions / Follow-Up Instructions / Follow-Up APPOINTMENTS: UROLOGY Dr. Richey [facility] [place] Office will contact you with appointment. Please call them if you have not heard from them by next week. OTHER INSTRUCTIONS: Drink plenty of fluids. Strain all urine and save any stones for Dr. Richey. Seek medical attention if you have: * temperature above 101 * chest pain or trouble breathing * abdominal pain, nausea, vomiting * diarrhea, dark stools or bloody stools * any unanswered questions or concerns Call 561 if symptoms are severe. Call if you have any questions or problems. My cell # is [phone]. You can also reach a [facility] hospitalist on duty at [facility] 24 hours a day by calling [phone]. Please take good care of yourself. Britton aSntiago . Current Hospital Diet Patient's current hospital diet: Regular Diet Discharge Diet Recommended Diet: Regular Diet Procedures Procedures Performed: Right Ureteral Stent placement, cystoscopy Pending Studies Studies pending at discharge: no Medical Emergencies . Who to Call and When: Medical Emergencies: If at any time you feel your situation is an emergency, please call 911 immediately. . Non-Emergent Contact Non-Emergency issues call your: Primary Care Provider, Urologist . . "Provider Documentation" section prepared by Britton Santiago. .. Additional Copies To Bety Gregg CRNP; Errol Richey, II., DO
== END 2017-07-03 15:11 | disposition home or self-care (01) | DRG 694 ==
LOC: EDBD 11:18 → C.EDB 11:20 → C.MS2W 15:05 → ENRESERV 15:30
PROVIDERS: ADMIT Internal Medicine; ATTEND Hospitalist
PROC: 0T763DZ Dilation of Right Ureter with Intraluminal Device, Percutaneous Approach (ICD-10-PCS; principal; 2017-07-01 18:42)
DX: N23 Unspecified renal colic (principal); N20.1 Calculus of ureter; N13.30 Unspecified hydronephrosis; R09.02 Hypoxemia; T40.605A Adverse effect of unspecified narcotics, initial encounter; Z87.891 Personal history of nicotine dependence; Z80.9 Family history of malignant neoplasm, unspecified; Z84.1 Family history of disorders of kidney and ureter; Z83.3 Family history of diabetes mellitus

== ENCOUNTER → 2017-07-10 | Outpatient (CLI) | payer OTHER ==
[~2017-07-10] MED LIST changes: +ACET-1138 PO; -ACET-749 PO; +CIPR-255 PO; +DOCU-94 PO; +DTR/5 PO; +FLM4 PO; -OXYC1TAB3 PO; +OXYC7.5T65 PO; +PHEN-876 PO; -[UNRECOGNIZED DRUG - CODE]
--- NOTE | 2017-07-10 10:54 | DIAGNOSTIC IMAGING REPORT ---
KUB CLINICAL HISTORY: N13.30 [id number] COMPARISON STUDY: 07/01/2017 FINDINGS: There is no pathologic bowel dilatation. There is scattered stool within the colon. There has been interval placement of a right-sided double pigtail nephroureteral stent. There are tiny bilateral renal calcifications consistent with nephrolithiasis. No ureteral calculi are visualized. IMPRESSION: 1. Bilateral nephrolithiasis 2. Right-sided double pigtail nephroureteral stent Electronically signed by: Pradeep Palomares M.D. 07/10/2017 10:53 AM Dictated Date/Time: 07/10/2017 10:52 AM
== END | disposition home or self-care (01) ==
LOC: C.RAD 10:20
PROVIDERS: ATTEND Urology
DX: N20.2 Calculus of kidney with calculus of ureter (principal); Z96.0 Presence of urogenital implants

== ENCOUNTER → 2017-07-17 | Day surgery (SDC) | payer OTHER ==
[~2017-07-17] VITALS: Ht 180.3 cm; Wt 65.9 kg
[~2017-07-17] MED LIST changes: -ACET-1138 PO; +ATROPINE SULFATE 0.1 MG/ML 5ML SYR IV PRN; +CIPROFLOXACIN / D5W 400 MG IV SCH; +Cysto-Conray II 17.2% 250ML BOTTLE ONE; +DEXAMETHASONE SOD INJ 4 MG/ML VIAL ONE; +EpHEDrine SULFATE INJ 50 MG/ML AMP IV PRN; +FENTANYL CITRATE INJ 50 MCG/1 ML 2 ML VIAL IV PRN; +FENTANYL CITRATE INJ 50 MCG/1 ML 2 ML VIAL ONE; -FLM4 PO; +HYDROmorphone INJ 0.5 MG/0.5 ML SYR IV PRN; +LACTATED RINGER'S 1000ML 1,000 ML IV SCH; +LIDOCAINE HCL 2% 2 ML VIAL (20MG/ML) ONE; +MIDAZOLAM HCL 1 MG/ML 2ML VIAL ONE; +ONDANSETRON INJ 2 MG/ML 2 ML VIAL IV PRN; +ONDANSETRON INJ 2 MG/ML 2 ML VIAL ONE; +OXYCODONE/ACETAMINOPHEN 7.5-325 TAB PO PRN; +PHEN-775 PO; -PHEN-876 PO; +PROMETHAZINE HCL INJ 12.5 MG in SODIUM CHLORIDE 0.9% 50ML 50 ML IV PRN; +PROPOFOL IV EMULSION 10 MG/ML 20 ML VIAL ONE; +TAMS0.4C38 PO
[2017-07-17 06:37] VITALS: BP 117/71; PULSE 55; TEMP 36.5; Ht 180.3 cm; Wt 65.9 kg
--- NOTE | 2017-07-17 07:17 | History & Physical Bridge Note ---
H&P Re-Evaluation Bridge Note: I have examined the patient, reviewed the History & Physical and in the interval since the performance of the History & Physical I have noted the following changes of clinical significance: No changes noted
--- NOTE | 2017-07-17 08:36 | Discharge Instructions ---
Discharge Instructions Date of Service July 17, 2017. Admission Reason for Admission: STONE Discharge Discharge Diagnosis / Problem: Stone Discharge Goals Goal(s): Decrease discomfort, Improve function Activity Recommendations Activity Limitations: resume your previous activity Lifting Limitations: gradually increase as tolerated Exercise/Sports Limitations: gradually increase as tolerated . Instructions / Follow-Up Instructions / Follow-Up May have blood in urine. May have pelvic discomfort. Call if any fevers or chills. Current Hospital Diet Patient's current hospital diet: Discharge Diet Recommended Diet: Regular Diet Procedures Procedures Performed: Cystoscopy and Right Ureteroscopy and Laser Pending Studies Studies pending at discharge: no Medical Emergencies . Who to Call and When: Medical Emergencies: If at any time you feel your situation is an emergency, please call 911 immediately. . Non-Emergent Contact Non-Emergency issues call your: Primary Care Provider, Urologist Call Non-Emergent contact if: you have a fever, temperature is above 101, temperature is above 101.5, your pain is not controlled, your pain is worsening , your pain is unusual for you . . "Provider Documentation" section prepared by Errol Richey. .
--- NOTE | 2017-07-17 09:44 | [facility] Operative Report ---
Operative Report Operative Date July 17, 2017. Pre-Operative Diagnosis Right Obstructing Stone Post-Operative Diagnosis Same Procedure(s) Performed Cystoscopy, Right Ureteroscopy, laser lithotripsy, stone basket extraction, retrograde pyelogram, and stent. Surgeon Kaiden Estimated Blood Loss Minimal Findings Right obstructing stone with stent in place. Specimens Stone Drains 6 Fr Multilength. Anesthesia Type General Complication(s) none Disposition Recovery Room / PACU Indications Patient with stent for obstructing stone. Risks and benefits discussed at length. Description of Procedure Patient was consented and brought back to the operating room. Patient was placed under anesthesia in the supine position and moved to the dorsal lithotomy position. Patient was prepped and draped in the regular sterile fashion. A time out was completed. A 30degree Cystoscope was placed into the bladder and the entire bladder was examined. The UO's were identified. The right stent was grasped and partially removed. A wire was placed. This was followed by a ureteral access sheath and a safety wire. A flexible ureteroscope was then placed. The scope was taken into the proximal ureter and the area assessed. The stone was identified and pulverized to dust and small fragments with the laser. The entire pelvis was examined. Further stone was treated. A larger fragment was grasped and removed. The entire pelvis and ureter were examined. A retrograde was completed through the scope to highlight the pelvis. The scope and sheath were removed with the wire remaining in place. With the wire in place, a 6 Fr Multilength Double J stent was placed. It was confirmed with fluoroscopy. With the stent in place, the bladder was emptied. The scope was removed. The patient was cleaned, aroused from anesthesia, and transferred to the pacu in stable condition having tolerated the procedure well with no complications. I was present and participated in all aspects of the procedure. The patient will be monitored in the PACU until transferred. I attest to the content of the Intraoperative Record and any orders documented therein. Any exceptions are noted below.
--- NOTE | 2017-07-17 10:16 | DIAGNOSTIC IMAGING REPORT ---
RETROGRADE INCLUDES KUB CLINICAL HISTORY: RETROGRADE COMPARISON STUDY: KUB July 10, 2017. Fluoroscopy time: 61.6 seconds. FINDINGS: 6 fluoroscopic images from a right retrograde exam were submitted for interpretation. These images demonstrate cannulation of the right ureter with placement of a right ureteral stent which appears appropriately positioned. There is mild right collecting system dilatation. IMPRESSION: Fluoroscopic images demonstrating right retrograde exam with ureteral stent insertion. Electronically signed by: John Richey M.D. 07/17/2017 10:15 AM Dictated Date/Time: 07/17/2017 10:03 AM
--- NOTE | 2017-07-17 10:39 | Anesthesiology Progress Note ---
Anesthesia Post Op Note Date & Time July 17, 2017 at 10:39 Vital Signs Pain Intensity: 0 Vital Signs Past 12 Hours Date Time Temp Pulse Resp B/P (MAP) Pulse Ox O2 Delivery O2 Flow Rate FiO2 07/17/17 10:30 36.2 50 13 134/81 99 Room Air 07/17/17 10:20 55 21 141/61 100 Room Air 07/17/17 10:10 53 20 119/76 99 Room Air 07/17/17 10:00 42 14 128/85 100 Room Air 07/17/17 09:53 36.0 96 20 124/76 100 Oxymask 10 07/17/17 06:37 36.5 55 18 117/71 (86) Room Air Notes Mental Status: alert / awake / arousable, participated in evaluation Pt Amnestic to Procedure: Yes Nausea / Vomiting: adequately controlled Pain: adequately controlled Airway Patency, RR, SpO2: stable & adequate BP & HR: stable & adequate Hydration State: stable & adequate Anesthetic Complications: no major complications apparent
[2017-07-17 10:40] VITALS: BP 131/72; PULSE 43; TEMP 36.7; O2SAT 99
[2017-07-17 11:10] VITALS: BP 121/78; PULSE 48; TEMP 36.7; O2SAT 99
== END | disposition home or self-care (01) ==
LOC: C.ACU 06:24
PROVIDERS: ATTEND Urology
DX: N20.0 Calculus of kidney (principal); Z87.442 Personal history of urinary calculi

== ENCOUNTER → 2017-10-16 | Outpatient (CLI) | payer OTHER ==
--- NOTE | 2017-10-16 09:49 | DIAGNOSTIC IMAGING REPORT ---
(KINA/BLAD)RETROPERITON COMP HISTORY: Nephrocalcinosis NEPHROLITHIASIS COMPARISON: 09/04/2017 FINDINGS: Right kidney: Maximum dimension 10.2 cm. No evidence for hydronephrosis. Several nonobstructing calcifications unchanged from the prior exam. Normal corticomedullary differentiation and cortical thickness. Left kidney: Maximum dimension 10.4 cm. Nonobstructing calcification unchanged in the prior study. No evidence for hydronephrosis. Normal corticomedullary differentiation and cortical thickness. Bladder: No bladder wall thickening. The bilateral ureteral jets were identified. IMPRESSION: 1. Bilateral nonobstructing renal calcifications. 2. No evidence for hydronephrosis. The above report was generated using voice recognition software. It may contain grammatical, syntax or spelling errors. Electronically signed by: Roddy Alcazar M.D. 10/16/2017 9:48 AM Dictated Date/Time: 10/16/2017 9:42 AM
== END | disposition home or self-care (01) ==
LOC: C.ULTR 09:02
PROVIDERS: ATTEND Urology
DX: N20.0 Calculus of kidney (principal)